=== PATIENT | male | born 1980 | race Caucasian/White ===

== ENCOUNTER 2019-12-19 11:27 | Emergency (ER) | payer OTHER, SELFPAY ==
[2019-12-19 11:34] VITALS: BP 147/88; PULSE 78; RESP 12; TEMP 36.5; O2SAT 98
--- NOTE | 2019-12-19 11:45 | ED.EAR ---
HPI - Ear Problem General Chief complaint: Ear Stated complaint: ear inf Time Seen by Provider: 12/19/19 11:45 Source: patient Mode of arrival: ambulatory Limitations: no limitations History of Present Illness HPI Narrative: Mariano Rankin is a 38 yo male with no PMH who comes to express care with c/o 4/10 L ear pain that started 3 days ago and is worsening. Denies putting anything in ear. No fever, N/V Related Data Allergies Allergy/AdvReac Type Severity Reaction Status Date / Time No Known Allergies Allergy Unknown Verified 12/19/19 11:33 Review of Systems Review of Systems: Narrative: CONSTITUTIONAL: Denies fever, chills, sweats. EYES: Denies visual changes, redness, discharge. ENT: Denies rhinorrhea, congestion, sore throat, left otalgia. CARDIOVASCULAR: Denies chest pain, palpitations, edema. RESPIRATORY: Denies dyspnea, wheezing, cough GASTROINTESTINAL: Denies abdominal pain, nausea, vomiting, diarrhea. GENITOURINARY: Denies dysuria, hematuria, abnormal discharge SKIN: Denies rash or itching. NEUROLOGIC: Denies numbness, or focal weakness. PSYCHIATRIC: Denies anxiety or depression. PMFSH Past Medical History Medical History No active medical problems Family History Family History Other Diabetes mellitus Hypertension Social History Social History (Updated 12/19/19 @ 11:52 by Ratna Rosario CNP) Smoking status: Never smoker Alcohol intake: current Comments At time of signature, I agree with nursing past medical, surgical, social and family history. There is no relevant family history pertinent to the presenting complaint. Blood pressure elevated at this visit may be due to ear pain recommended to go back to PCP Exam Narrative: Exam Narrative: GENERAL: This is a well-nourished, well-developed patient, in moderate distress. HEAD: normocephalic, atraumatic. EYES: Sclera clear/white. Vision is grossly intact. EARS: External ears normal, auditory canal clear and without drainage on R; left canal is erythematous with edema and drainage, crusting near tympanic membrane, TMs without perforation. Hearing grossly intact. NOSE: External nose normal without nasal discharge, nares without redness, no rhinorrhea. THROAT: Mucous membranes moist, NECK: Neck supple, CARDIOVASCULAR: Regular rate and rhythm without murmurs, gallops, or rubs. RESPIRATORY: Clear to auscultation. Breath sounds equal bilaterally. No wheezes, rales, or rhonchi. GASTROINTESTINAL: Abdomen soft, SKIN: warm, intact with no suspicious lesions or rash, good texture and turgor. NEURO: awake, alert, and oriented to person, place and time. There were no obvious focal neurologic abnormalities. Steady gait EXTREMITIES: Normal range of motion. BACK: Nontender without deformity Course Course Emergency Course: Discussed treatment options with the patient. She refuses eardrops and wants p.o. antibiotic. Started on amoxicillin 3 times daily Vital Signs Vital signs: Vital Signs Temperature 97.7 F 12/19/19 11:34 Pulse Rate 78 12/19/19 11:34 Respiratory Rate 12 12/19/19 11:34 Blood Pressure 147/88 H 12/19/19 11:34 Pulse Oximetry 98 12/19/19 11:34 Temperature 97.7 F 12/19/19 11:34 Pulse Rate 78 12/19/19 11:34 Respiratory Rate 12 12/19/19 11:34 Blood Pressure 147/88 H 12/19/19 11:34 Pulse Oximetry 98 12/19/19 11:34 Medical Decision Making Differential Diagnosis Differential Diagnosis: Otitis media versus otitis externa versus pharyngitis versus sinusitis Vital Signs Vital Signs: Vital Signs Temperature 97.7 F 12/19/19 11:34 Pulse Rate 78 12/19/19 11:34 Respiratory Rate 12 12/19/19 11:34 Blood Pressure 147/88 H 12/19/19 11:34 Pulse Oximetry 98 12/19/19 11:34 Temperature 97.7 F 12/19/19 11:34 Pulse Rate 78 12/19/19 11:34 Respiratory Rate 12 12/19/19 11:34 Blood P
== END 2019-12-19 12:10 | disposition home or self-care (01) ==
PROVIDERS: Emergency Provider Nurse Practitioner; PCP Internal Medicine
DX: H65.01 Acute serous otitis media, right ear (principal)
CPT/HCPCS: 99213; G0463

== ENCOUNTER 2020-01-01 13:50 | Emergency (ER) | payer OTHER, SELFPAY ==
--- NOTE | 2020-01-01 13:55 | ED.GENADULT ---
HPI - General Adult General Chief complaint: Ear Stated complaint: ear pain Time Seen by Provider: 01/01/20 14:20 Source: patient Mode of arrival: ambulatory Limitations: no limitations History of Present Illness HPI narrative: 39-year-old male patient presents to the [facility] with complaints of left-sided ear pain. Patient states he has had this ear pain now for about 3 weeks and 2 weeks ago he was seen here and put on amoxicillin. Patient states that he has taken the entire course of amoxicillin but continues to have intermittent ear pain. Patient denies any discharge coming from the ear. Denies any fevers, body aches or chills. Patient states he does have history of severe allergies and currently gets allergy shots every 2 weeks. Patient states that he does have a nasal spray that he takes for allergies but denies being on any oral antihistamines stating that they have done nothing for him in the past. Denies any sore throat, coughing, chest pain, shortness of breath, abdominal pain, nausea, vomiting or diarrhea. Related Data Allergies Allergy/AdvReac Type Severity Reaction Status Date / Time No Known Allergies Allergy Verified 01/01/20 14:21 Review of Systems Review of Systems: Narrative: CONSTITUTIONAL: Denies fever, chills, or sweats. EYES: Denies visual changes, redness, or discharge. ENT: Denies rhinorrhea, congestion, sore throat, positive left otalgia. CARDIOVASCULAR: Denies chest pain, palpitations, or edema. RESPIRATORY: Denies cough or dyspnea. GASTROINTESTINAL: Denies abdominal pain, nausea, vomiting, or diarrhea. GENITOURINARY: Denies dysuria or hematuria. SKIN: Denies rash or itching. MUSCULOSKELETAL: Denies back pain, joint pain, or myalgia. NEUROLOGIC: Denies headache, numbness, or weakness. PSYCHIATRIC: Denies anxiety or depression. PMFSH Comments At the time of my signature I agree with nursing past medical history, surgical, social, and family history. There is no relevant family history pertinent to the presenting complaint. Exam Narrative: Exam Narrative: GENERAL: Well-appearing, well-nourished, and in no acute distress. HEAD: Normocephalic, atraumatic. EYES: PERRLA and EOMI. ENT: Nares with erythema and edema noted bilaterally and swollen shut bilaterally, no rhinorrhea or epistaxis. Mucous membranes moist. Posterior pharynx no erythema, tonsil enlargement, exudates or lesions present. The left TM does have a little bit of fluid noted but no erythema no bulging noted. No foreign bodies to the canal. NECK: Supple. No lymphadenopathy CHEST: Clear to auscultation. No respiratory distress. HEART: Regular rate and rhythm. No murmur heard. Normal peripheral pulses. ABDOMEN: Soft, nontender, nondistended, normal active bowel sounds. EXTREMITIES: Normal range of motion. No edema. SKIN: Warm, dry, no rash. NEURO: No focal deficits. Alert and oriented x3. Course Vital Signs Vital signs: Vital Signs Temperature 36.1 C L 01/01/20 14:09 Pulse Rate 68 01/01/20 14:09 Respiratory Rate 01/01/20 14:09 Blood Pressure 131/83 01/01/20 14:09 Pulse Oximetry 100 01/01/20 14:09 Temperature 36.1 C L 01/01/20 14:09 Pulse Rate 68 01/01/20 14:09 Respiratory Rate 01/01/20 14:09 Blood Pressure 131/83 01/01/20 14:09 Pulse Oximetry 100 01/01/20 14:09 Vital signs reviewed. Medical Decision Making Differential Diagnosis Differential Diagnosis: Differential diagnosis: Otitis media, otitis externa, perforated TM, infection of the outer ear, foreign body or cerumen impaction, ruptured TM, acute mastoiditis, ligament otitis externa, dehydration, pneumonia, sepsis, dental or intraoral infection, TMJ dysfunction Discussed with patient that it does appear that he has a little bit of fluid behind the ear which is what could be possibly causing the pain and since he does have a history of allergy issues this could be some sinus drainage. Discussed with him I do not see any infection per
[2020-01-01 14:09] VITALS: BP 131/83; PULSE 68; RESP 20; TEMP 36.1; O2SAT 100
== END 2020-01-01 14:56 | disposition home or self-care (01) ==
PROVIDERS: Emergency Provider Nurse Practitioner Family; PCP Internal Medicine
DX: H93.8X2 Other specified disorders of left ear (principal); J00 Acute nasopharyngitis [common cold]; J01.90 Acute sinusitis, unspecified
CPT/HCPCS: 99213; G0463